=== PATIENT | male | born 1995 | race Caucasian/White ===

== ENCOUNTER 2017-03-17 14:59 | Emergency (ER) | payer OTHER ==
[2017-03-17 15:11] VITALS: RESP 16; TEMP 97.9
--- NOTE | 2017-03-17 15:40 | EDPHY ---
H & P Smoking Status: Never smoked Time Seen by Provider: 03/17/17 15:15 HPI/ROS: CHIEF COMPLAINT: Cat bite HISTORY OF PRESENT ILLNESS: This is a 21-year-old male presenting to the emergency department reports cat bite to right palm and right [id number] ULTRASOUND TECH. 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 Tetanus vaccine up-to-date. Denies any other complaints REVIEW OF SYSTEMS: Constitutional: No fever, no chills. Eyes: No discharge. No blurred vision ENT: No sore throat. Cardiovascular: No chest pain, no palpitations. Respiratory: No cough, no shortness of breath. Gastrointestinal: No abdominal pain, no vomiting. Genitourinary: No hematuria. Musculoskeletal: No back pain. Right palm right thumb puncture wounds and scratches Skin: No rashes. Neurological: No headache. (Leatha Neri) Physical Exam: General Appearance: Alert and no distress. HEENT: Normocephalic atraumatic Pupils equal and round no injection. Respiratory: Chest is nontender, lungs are clear to auscultation. Cardiac: regular rate and rhythm Gastrointestinal: Abdomen is soft and nontender Musculoskeletal: Neck is supple and nontender. Extremities: Right thumb right palm several puncture wound with superficial scratches. full range of motion. Positive CMS intact, no deep structures no tendon involvement Skin: No rashes or lesions. Right thumb right palm several puncture wound with superficial scratches (Leatha Neri) Constitutional: Initial Vital Signs Temperature (C) 36.6 C 03/17/17 15:08 Heart Rate 82 03/17/17 15:08 Respiratory Rate 16 03/17/17 15:08 Blood Pressure 135/78 H 03/17/17 15:08 O2 Sat (%) 96 03/17/17 15:08 O2 Delivery Mode Room Air Allergies/Adverse Reactions: No Known Allergies Allergy (Unverified 03/17/17 15:11) Home Medications: Medication Instructions Recorded Amoxicillin/Clavulanate Pot 875 mg PO BID #14 tab 03/17/17 [Augmentin 875 MG TAB (*)] ED Images - Extremities Hands Back Left/Right: 1 - scratch 2 - scratch 3 - puncture wound Hands Front Left/Right: 1 - puncture wound 2 - puncture wound 3 - scratch Medical Decision Making ED Course/Re-evaluation: Discussed the plan of care: Wound irrigation, no sutures needed, dressing placed (Leatha Neri) Differential Diagnosis: Other differential diagnosis considered but not limited to laceration, cellulitis, tendon injury and foreign body (Leatha Neri) Other Provider: The patient was evaluated and managed by the Physician Library Cataloging Technician/ Nurse Practitioner. My co-signature indicates that I have reviewed this chart and I agree with the findings and plan of care as documented. I am the secondary supervising physician. (Eliana Ordoñez) - Data Points Medications Given: Discontinued Medications Amoxicillin/Clavulanate Potassium (Augmentin 875mg) 875 mg PO EDNOW ONE PRN Reason: Protocol Stop: 03/17/17 15:46 Last Admin: 03/17/17 15:51 Dose: 875 mg Departure - Departure Disposition: Home, Routine, Self-Care Clinical Impression: Cat bite of hand Qualifiers: Encounter type: initial encounter Laterality: right Qualified Code(s): S61.451A - Open bite of right hand, initial encounter Cat scratch of hand Qualifiers: Encounter type: initial encounter Laterality: right Qualified Code(s): S60.511A - Abrasion of right hand, initial encounter Condition: Good Instructions: Animal Bite (ED) Additional Instructions: 1. Take all antibiotics as prescribed 2. Keep initial dressing on for 24 hours, then after daily dressing changes 3. Monitor for any signs of infection, such as: Redness, red streaks, drainage , swelling, fever. If any of these should occur return to the ER Referrals: NONE *PRIMARY CARE P,. [Primary Care Provider] - As per Instructions [facility],. [Clinic] - As per Instructions Prescriptions: Amoxicillin/Clavulanate Pot [Augmentin 875 MG TAB (*)] 875 mg PO BID #14 tab
[2017-03-17] MEDS ORDERED: AMOXICILLIN/CLAVULANATE POT 875/125 MG TAB PO ONE (15:45)
[2017-03-17 16:21] VITALS: BP 134/91; PULSE 75; O2SAT 95
== END 2017-03-17 16:21 | disposition home or self-care (01) ==
DX: S61.451A Open bite of right hand, initial encounter (principal); S60.511A Abrasion of right hand, initial encounter; W55.01XA Bitten by cat, initial encounter; Y99.0 Civilian activity done for income or pay; Y93.89 Activity, other specified